=== PATIENT | female | born 1985 | race Caucasian/White ===

== ENCOUNTER 2019-07-28 20:36 | Emergency (ER) | payer SELFPAY ==
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
[2019-07-28 22:22] LABS: URINE AMPHETAMINES SCREEN NEGATIVE; URINE BARBITURATES SCREEN NEGATIVE; URINE BENZODIAZEPINES SCREEN NEGATIVE; URINE COCAINE SCREEN NEGATIVE; URINE MARIJUANA (THC) SCREEN NEGATIVE; URINE METHADONE SCREEN NEGATIVE; URINE PHENCYCLIDINE SCREEN NEGATIVE
[2019-07-29 01:08] VITALS: BP 116/82
== END 2019-07-28 23:55 | disposition home or self-care (01) ==
LOC: ER 20:36
DX: Z02.83 Encounter for blood-alcohol and blood-drug test (principal); Z71.1 Person with feared health complaint in whom no diagnosis is made; F17.200 Nicotine dependence, unspecified, uncomplicated
CPT/HCPCS: 80307; 99282